=== PATIENT | female | born 1990 | race Caucasian/White ===

== ENCOUNTER 2018-07-21 22:59 | Emergency (ER) | payer OTHER, BC ==
[2018-07-22] MEDS: HYDROCODONE/APAP (5/325) TAB PO (02:41)
[2018-07-22] MEDS: KETOROLAC 60 MG INJ IM (02:42)
[2018-07-22 03:12] LABS: PARTIAL THROMBOPLASTIN TIME 29.9 Sec (23.0-35.0); PROTIME 13.3 Sec (11.9-14.9)
== END 2018-07-22 03:36 | disposition home or self-care (01) ==
LOC: FTE 22:59
DX: O02.1 Missed abortion (principal)
CPT/HCPCS: 36415; 76801; 85384; 85610; 85730; 86900; 86901; 96372; 99285-25

== ENCOUNTER 2018-07-27 15:38 | Day surgery (SDC) | payer OTHER ==
[2018-07-27 16:13] LABS: ADD MAN DIFF? NO
[2018-07-27 16:15] LABS: BASOPHIL # 0.1 10^3/ul (0.0-0.1); BASOPHILS % 0.6 % (0.0-2.0); EOSINOPHILS # 0.1 10^3/ul (0.0-0.5); EOSINOPHILS % 0.9 % (0.0-7.0); HEMATOCRIT 39.4 % (37.0-47.0); HEMOGLOBIN 13.3 g/dl (12.0-16.0); LYMPHOCYTES # 2.1 10^3/ul (0.8-2.9); LYMPHOCYTES % 26.7 % (15.0-51.0); MEAN CORPUSCULAR HEMOGLOBIN 29.8 pg (29.0-33.0); MEAN CORPUSCULAR HGB CONC 33.8 g/dl (32.0-37.0); MEAN CORPUSCULAR VOLUME 88.3 fl (82.0-101.0); MEAN PLATELET VOLUME 10.3 fl (7.4-10.4); MONOCYTE # 0.5 10^3/ul (0.3-0.9); MONOCYTES % 5.9 % (0.0-11.0); NEUTROPHIL # 5.3 10^3/ul (1.6-7.5); NEUTROPHILS % 65.7 % (39.0-77.0); PLATELET COUNT 205 10^3/UL (140-415); RED BLOOD COUNT 4.46 10^6/ul (4.20-5.40); RED CELL DISTRIBUTION WIDTH 12.7 % (11.5-14.5)
[2018-07-27] MEDS ORDERED: SEVOFLURANE 15 MIN (17:00)
[2018-07-27] MEDS ORDERED: FENTAnyl 50 MCG/ML VIAL (17:26)
[2018-07-27] MEDS ORDERED: MIDAZOLAM 1 MG/ML 2 ML INJ (17:26)
[2018-07-27] MEDS ORDERED: METHYLERGONOVINE 0.2 MG INJ (17:40)
[2018-07-27] MEDS ORDERED: ONDANSETRON 4 MG INJ (17:47)
[2018-07-27] MEDS ORDERED: CEFAZOLIN 1 GM INJ (17:48)
[2018-07-27] MEDS ORDERED: PROPOFOL 20 ML (17:48)
[2018-07-27] MEDS ORDERED: LIDOCAINE 2% (SDV) 5 ML INJ (17:48)
[2018-07-27] MEDS ORDERED: HYDROmorphONE 1 MG/5 ML IV SYRINGE IV ×2 (18:30)
[2018-07-27] MEDS ORDERED: FENTAnyl 50 MCG/ML VIAL IV (18:30)
[2018-07-27] MEDS ORDERED: METOCLOPRAMIDE 10 MG INJ IV (18:30)
[2018-07-27] MEDS ORDERED: DIPHENHYDRAMINE 50 MG INJ IV (18:30)
[2018-07-27] MEDS ORDERED: MEPERIDINE 25 MG INJ IV (18:30)
[2018-07-27] MEDS ORDERED: ONDANSETRON 4 MG INJ IV (18:30)
== END 2018-07-27 19:41 | disposition home or self-care (01) ==
LOC: SDS 15:38
DX: O02.1 Missed abortion (principal); Z67.90 Unspecified blood type, Rh positive
CPT/HCPCS: 59820; 85025; 86850; 86900; 86901; 88305